=== PATIENT | female | born 1995 | race Caucasian/White ===

== ENCOUNTER 2021-10-15 08:19 | Emergency (ER) | payer OTHER ==
[2021-10-15] MEDS ORDERED: AMOX TR-K CLV1 EAC4 PO (09:13)
== END 2021-10-15 10:11 | disposition home or self-care (01) ==
LOC: FER 08:19
DX: O9A.219 Injury, poisoning and certain other consequences of external causes complicating pregnancy, unspecified trimester (principal); S61.452A Open bite of left hand, initial encounter; W54.0XXA Bitten by dog, initial encounter; Y93.K3 Activity, grooming and shearing an animal; Y92.89 Other specified places as the place of occurrence of the external cause; Y99.0 Civilian activity done for income or pay
CPT/HCPCS: 99283

== ENCOUNTER 2022-03-05 19:57 | Inpatient (IN) | payer OTHER ==
[~2022-03-05 19:57] MED LIST: AMOX TR-K CLV1 EAC4 PO
[2022-03-05 20:55] LABS: BILIRUBIN NEGATIVE (NEGATIVE); BLOOD NEGATIVE Ery/uL (NEGATIVE); CLARITY CLEAR (CLEAR); COLOR YELLOW (YELLOW); GLUCOSE (U) NORMAL (NORMAL); LEUKOCYTES NEGATIVE Leu/uL (NEGATIVE); NITRITE NEGATIVE (NEGATIVE); PROTEIN NEGATIVE (NEGATIVE)
[2022-03-05 21:20] LABS: HCT 36.1 % (37.0-47.0); HGB 12.5 g/dl (12.5-16.0); MCH 31.3 pg (25.0-31.0); MCHC 34.6 g/dL (32.0-36.0); MCV 90.5 fL (78.0-100.0); MPV 11.7 fL (6.0-9.5); RBC 3.99 M/uL (4.20-5.40); RDW 11.9 % (11.5-14.0); WBC 14.1 K/uL (4.0-10.5)
[2022-03-05 21:20] LABS: AMPHETAMINES NEGATIVE (NEGATIVE); BARBITURATES NEGATIVE (NEGATIVE); ECSTASY (MDMA) NEGATIVE (NEGATIVE); MARIJUANA (THC) NEGATIVE (NEGATIVE); METHADONE NEGATIVE (NEGATIVE); OPIATES NEGATIVE (NEGATIVE); OXYCODONE NEGATIVE (NEGATIVE)
[2022-03-08 06:19] LABS: HCT 30.9 % (37.0-47.0); HGB 10.8 g/dl (12.5-16.0); MCV 91.7 fL (78.0-100.0); MPV 11.2 fL (6.0-9.5); RBC 3.37 M/uL (4.20-5.40); RDW 12.1 % (11.5-14.0); WBC 21.9 K/uL (4.0-10.5)
[2022-03-09 07:05] LABS: HCT 30.3 % (37.0-47.0); HGB 10.3 g/dl (12.5-16.0); MCH 31.6 pg (25.0-31.0); MCV 92.9 fL (78.0-100.0); MPV 10.7 fL (6.0-9.5); RBC 3.26 M/uL (4.20-5.40); RDW 12.2 % (11.5-14.0); WBC 12.5 K/uL (4.0-10.5)
== END 2022-03-09 21:30 | disposition home or self-care (01) | DRG 806 ==
LOC: FOB 19:57
PROVIDERS: Obstetrics & Gynecology; ADMIT Obstetrics & Gynecology
PROC: 10E0XZZ Delivery of Products of Conception, External Approach (ICD-10-PCS; principal; 2022-03-07)
PROC: 0KQM0ZZ Repair Perineum Muscle, Open Approach (ICD-10-PCS; 2022-03-07)
PROC: 10H07YZ Insertion of Other Device into Products of Conception, Via Natural or Artificial Opening (ICD-10-PCS; 2022-03-07)
PROC: 3E0P7VZ Introduction of Hormone into Female Reproductive, Via Natural or Artificial Opening (ICD-10-PCS; 2022-03-07)
DX: O99.214 Obesity complicating childbirth (principal); D62 Acute posthemorrhagic anemia; Z37.0 Single live birth; O99.12 Other diseases of the blood and blood-forming organs and certain disorders involving the immune mechanism complicating childbirth; Z3A.40 40 weeks gestation of pregnancy; O48.0 Post-term pregnancy; D69.6 Thrombocytopenia, unspecified; Z20.822 Contact with and (suspected) exposure to COVID-19; O90.81 Anemia of the puerperium; O99.892 Other specified diseases and conditions complicating childbirth; R00.1 Bradycardia, unspecified; O70.1 Second degree perineal laceration during delivery; Z87.891 Personal history of nicotine dependence; Z90.721 Acquired absence of ovaries, unilateral
CPT/HCPCS: 36415; 80305; 81003; 86850; 86900; 86901; 93005; J2001; J2300; J2405; J3430; J7120; U0002